=== PATIENT | female | born 1995 | race Caucasian/White ===

== ENCOUNTER 2017-04-17 15:08 | Emergency (ER) | payer MEDICAID ==
[~2017-04-17] VITALS: Ht 154.9 cm; Wt 45.0 kg
[2017-04-17] MEDS ORDERED: ONDANSETRON HCL 4MG/2ML VIAL IV STA (17:15)
[2017-04-17] MEDS ORDERED: SODIUM CHLORIDE 0.9% 1,000 ML IV ONE (17:15)
[2017-04-17] MEDS ORDERED: MORPHINE SULFATE 4 MG/ML CPJ (NOT FOR IM USE) IV STA (17:15)
[2017-04-17 17:38] LABS: CLARITY URINE CLEAR (CLEAR); COLOR URINE YELLOW (YELLOW); GLUCOSE URINE NEGATIVE (NEGATIVE); KETONES URINE 3+ (NEGATIVE); LEUKOCYTE ESTERASE URINE NEGATIVE (NEGATIVE); NITRITE URINE NEGATIVE (NEGATIVE); OCCULT BLOOD URINE TRACE (NEGATIVE); PROTEIN URINE NEGATIVE (NEGATIVE); SPECIFIC GRAVITY URINE 1.024 (1.005-1.030); UROBILINOGEN URINE 0.2 E.U./dL (0.2-1.0)
[2017-04-17 17:42] LABS: HEMATOCRIT. 40.5 % (36.0-48.0); HEMOGLOBIN. 13.4 g/dL (12.0-16.0); MEAN CORPUSCULAR HEMOGLOBIN 26.4 pg (28.0-32.0); MEAN CORPUSCULAR VOLUME 79.8 fL (81.0-99.0); MEAN PLATELET VOLUME 7.7 fl (7.4-10.4); PLATELET 273 x1000/uL (130-400); RED BLOOD CELL COUNT 5.08 mill/uL (4.2-5.4); RED CELL DISTRIBUTION WIDTH 20.2 % (11.6-14.6)
[2017-04-17 17:45] LABS: INR 1.1; PROTHROMBIN TIME 11.5 sec (9.4-11.6)
[2017-04-17 17:49] LABS: HCG SCREEN NEGATIVE
[2017-04-17 17:51] LABS: CARBON DIOXIDE 23 mEq/L (21-32); CHLORIDE 107 mEq/L (98-107)
[2017-04-17 18:01] LABS: PLATELET ESTIMATE NORMAL
[2017-04-17 19:09] VITALS: BP 115/74
== END 2017-04-17 19:11 | disposition home or self-care (01) ==
LOC: ER 15:08
DX: R10.13 Epigastric pain (principal); R11.2 Nausea with vomiting, unspecified
CPT/HCPCS: 36415; 76705; 80053; 81001; 83690; 84703; 85025; 85610; 96361; 96374; 99285; J2405; J7030; Z7610; J2270

== ENCOUNTER 2017-06-13 20:32 | Inpatient (IN) | payer MEDICAID ==
[~2017-06-13] VITALS: Ht 121.9 cm; Wt 60.8 kg
[2017-06-14] MEDS ORDERED: FAMOTIDINE 20MG/2ML VIAL IV STA (00:10)
[2017-06-14] MEDS ORDERED: ONDANSETRON HCL 4MG/2ML VIAL IV STA (00:10)
[2017-06-14] MEDS ORDERED: SODIUM CHLORIDE 0.9% 1,000 ML IV ONE (00:10)
[2017-06-14] MEDS ORDERED: PANTOPRAZOLE SODIUM 40 MG/VIAL IV STA (00:10)
[2017-06-14] MEDS ORDERED: MORPHINE SULFATE 4 MG/ML CPJ (NOT FOR IM USE) IV STA (00:10)
[2017-06-14 00:39] LABS: HEMATOCRIT. 42.2 % (36.0-48.0); HEMOGLOBIN. 14.2 g/dL (12.0-16.0); MEAN CORPUSCULAR HEMOGLOBIN 28.4 pg (28.0-32.0); MEAN CORPUSCULAR VOLUME 84.1 fL (81.0-99.0); MEAN PLATELET VOLUME 7.5 fl (7.4-10.4); PLATELET 326 x1000/uL (130-400); RED BLOOD CELL COUNT 5.02 mill/uL (4.2-5.4)
[2017-06-14 00:46] LABS: HCG SCREEN NEGATIVE
[2017-06-14 01:02] LABS: CARBON DIOXIDE 23 mEq/L (21-32); CHLORIDE 108 mEq/L (98-107); ETHANOL BLOOD < 10 mg/dL
[2017-06-14] MEDS ORDERED: SODIUM CHLORIDE 0.9% 1,000 ML IV SCH (01:20)
[2017-06-14] MEDS ORDERED: PIPERACILLIN/TAZ 3.375G PREMIX 50 ML IV SCH (01:30)
[2017-06-14] MEDS ORDERED: IOHEXOL-300 100 ML BOTTLE ONE (02:45)
[2017-06-14 04:12] LABS: CLARITY URINE CLEAR (CLEAR); COLOR URINE YELLOW (YELLOW); GLUCOSE URINE NEGATIVE (NEGATIVE); KETONES URINE 3+ (NEGATIVE); LEUKOCYTE ESTERASE URINE NEGATIVE (NEGATIVE); NITRITE URINE NEGATIVE (NEGATIVE); OCCULT BLOOD URINE NEGATIVE (NEGATIVE); PH URINE 5.5 (4.5-8.0); PROTEIN URINE 1+ (NEGATIVE); SPECIFIC GRAVITY URINE 1.068 (1.005-1.030); UROBILINOGEN URINE 0.2 E.U./dL (0.2-1.0)
[2017-06-14 04:44] LABS: *AMPHETAMINES SCREEN URINE NEGATIVE (NEGATIVE); *BARBITURATES SCREEN URINE NEGATIVE (NEGATIVE); *BENZODIAZEPINES SCREEN URINE NEGATIVE (NEGATIVE); *COCAINE SCREEN URINE NEGATIVE (NEGATIVE); METHADONE URINE SCREEN NEGATIVE (NEGATIVE); PHENCYCLIDINE URINE SCREEN NEGATIVE (NEGATIVE)
[2017-06-14 04:54] LABS: CANNABINOID URINE SCREEN PRESUMTIVE POSITIVE (NEGATIVE); OPIATES URINE SCREEN PRESUMTIVE POSITIVE (NEGATIVE)
[2017-06-14 06:24] LABS: PLATELET ESTIMATE NORMAL
[2017-06-14 09:00] VITALS: BP 105/61
[2017-06-14] MEDS ORDERED: ACETAMINOPHEN 650MG SUPP PR PRN (10:15)
[2017-06-14] MEDS ORDERED: GUAIFENESIN 200MG/10ML SUGAR FREE UDC PO PRN (10:15)
[2017-06-14] MEDS ORDERED: ONDANSETRON HCL 4MG/2ML VIAL IV PRN (10:15)
[2017-06-14] MEDS ORDERED: DOCUSATE SODIUM 100MG CAPSULE PO PRN (10:15)
[2017-06-14] MEDS ORDERED: ACETAMINOPHEN 325MG TABLET PO PRN (10:15)
[2017-06-14] MEDS ORDERED: HYDROCODONE/ACETAMINOPHEN 5/325MG TABLET PO PRN (10:15)
[2017-06-14] MEDS ORDERED: NA PHOS,M-B/NA PHOS,DI-BA ENEMA 118ML PR PRN (10:15)
[2017-06-14] MEDS: SODIUM CHLORIDE 0.9% 1,000 ML IV SCH ×2 (10:15→22:38)
[2017-06-14] MEDS ORDERED: MAGNESIUM/ALUMINUM HYDROXIDE/SIMETHICONE 30ML UDC PO PRN (10:15)
[2017-06-14] MEDS ORDERED: IPRATROPIUM/ALBUTEROL 0.5-3(2.5)MG/3ML NEB INH PRN (10:15)
[2017-06-14] MEDS ORDERED: CLONIDINE 0.1MG TABLET PO PRN (10:15)
[2017-06-14] MEDS ORDERED: ACETAMINOPHEN 650MG/20.3ML UDC GT PRN (10:15)
[2017-06-14] MEDS: ENOXAPARIN 40MG/0.4ML SYR SUBCUT SCH (10:30)
[2017-06-14] MEDS: LEVOFLOXACIN 500MG PREMIX 100 ML IV SCH (11:00)
[2017-06-14 12:00] VITALS: BP 109/62
[2017-06-14] MEDS: SODIUM CHLORIDE 0.9% INJ 3ML FLUSH IVF SCH ×2 (14:50→22:37)
[2017-06-14 16:00] VITALS: BP 101/68
[2017-06-14] MEDS: METRONIDAZOLE 500 MG PREMIX 100 ML IV SCH ×2 (17:17→22:37)
[2017-06-14 18:50] VITALS: BP 105/61
[2017-06-14 20:00] VITALS: BP 120/70
[2017-06-15] VITALS: BP 101/55
[2017-06-15 04:00] VITALS: BP 100/60
[2017-06-15] MEDS: METRONIDAZOLE 500 MG PREMIX 100 ML IV SCH (06:19)
[2017-06-15] MEDS: SODIUM CHLORIDE 0.9% INJ 3ML FLUSH IVF SCH (06:19)
[2017-06-15] MEDS ORDERED: PANT40TA4 PO (06:28)
[2017-06-15 07:18] LABS: BASOPHILS % 0.5 % (0.0-2.0); EOSINOPHILS % 0.6 % (0.0-5.0); LYMPHOCYTES % 31.3 % (20.0-50.0); MEAN CORPUSCULAR VOLUME 84.6 fL (81.0-99.0); MEAN PLATELET VOLUME 7.6 fl (7.4-10.4); MONOCYTES % 8.3 % (2.0-8.0); NEUTROPHILS % 59.3 % (40.0-76.0); PLATELET 233 x1000/uL (130-400); RED BLOOD CELL COUNT 4.14 mill/uL (4.2-5.4); RED CELL DISTRIBUTION WIDTH 15.9 % (11.6-14.6)
[2017-06-15 07:59] LABS: CARBON DIOXIDE 26 mEq/L (21-32); CHLORIDE 110 mEq/L (98-107); HDL CHOLESTEROL 44 mg/dL (40-59); LDL CHOLESTEROL 41 mg/dL (5-100)
[2017-06-15 08:00] VITALS: BP 117/89
[2017-06-15] MEDS: ENOXAPARIN 40MG/0.4ML SYR SUBCUT SCH (10:18)
[2017-06-15] MEDS: LEVOFLOXACIN 500MG PREMIX 100 ML IV SCH (10:31)
[2017-06-15] MEDS ORDERED: LEVO500T2 PO (11:37)
[2017-06-15] MEDS ORDERED: METR500T PO (11:37)
[2017-06-15 12:00] VITALS: BP 110/66
[2017-06-15 12:07] VITALS: BP 110/66
[2017-06-15] MEDS ORDERED: POTASSIUM CHLORIDE 20MEQ TABLET SR PO SCH (12:45)
== END 2017-06-15 14:10 | disposition home or self-care (01) | DRG 249 ==
LOC: ER 20:32 → 6EST 06-14 04:28 → ENRESERV 06-14 07:33
PROVIDERS: ADMIT Family Medicine; ATTEND Family Medicine
DX: E86.0 Dehydration (principal); K52.9 Noninfective gastroenteritis and colitis, unspecified; Z60.2 Problems related to living alone; F17.200 Nicotine dependence, unspecified, uncomplicated
CPT/HCPCS: 36415; 74177; 80053; 80061; 80305; 81001; 83605; 83690; 84703; 85025; 87040; 87086; 96365; 96366; 96375; 99291; C9113; G0482; J1650; J1956; J2270; J2405; J2543; J3490; J7030; Q9967

== ENCOUNTER 2018-05-31 16:47 | Emergency (ER) | payer MEDICAID ==
[~2018-05-31] VITALS: Ht 154.9 cm; Wt 46.0 kg
[~2018-05-31 16:47] MED LIST: LEVO500T2 PO; METR500T PO; PANT40TA4 PO
[2018-05-31] MEDS ORDERED: ACETAMINOPHEN 325MG TABLET PO STA (19:57)
[2018-05-31 21:32] LABS: CHLORIDE 108 mEq/L (98-107)
[2018-05-31 21:36] LABS: HEMATOCRIT. 40.9 % (36.0-48.0); HEMOGLOBIN. 13.5 g/dL (12.0-16.0); MEAN CORPUSCULAR HEMOGLOBIN 28.8 pg (28.0-32.0); MEAN CORPUSCULAR VOLUME 87.2 fL (81.0-99.0); MEAN PLATELET VOLUME 8.1 fl (7.4-10.4); PLATELET 325 x1000/uL (130-400); RED BLOOD CELL COUNT 4.69 mill/uL (4.2-5.4); RED CELL DISTRIBUTION WIDTH 16.7 % (11.6-14.6)
[2018-05-31 21:59] LABS: PLATELET ESTIMATE NORMAL
[2018-05-31 22:58] LABS: CLARITY URINE CLEAR (CLEAR); COLOR URINE YELLOW (YELLOW); KETONES URINE 4+ (NEGATIVE); LEUKOCYTE ESTERASE URINE NEGATIVE (NEGATIVE); NITRITE URINE NEGATIVE (NEGATIVE); OCCULT BLOOD URINE 2+ (NEGATIVE); PROTEIN URINE 1+ (NEGATIVE); SPECIFIC GRAVITY URINE 1.022 (1.005-1.030); UROBILINOGEN URINE 0.2 E.U./dL (0.2-1.0)
[2018-06-01 00:12] VITALS: BP 128/72
== END 2018-06-01 00:42 | disposition home or self-care (01) ==
LOC: ER 16:47
DX: B34.9 Viral infection, unspecified (principal); F17.290 Nicotine dependence, other tobacco product, uncomplicated; Z79.899 Other long term (current) drug therapy
CPT/HCPCS: 36415; 71045; 80053; 81003; 81025; 85025; 99285; 99406